=== PATIENT | female | born 1985 | race Caucasian/White ===

== ENCOUNTER 2024-07-23 14:32 | Emergency (ER) | payer BC ==
[~2024-07-23] VITALS: Ht 170.2 cm; Wt 77.6 kg
[2024-07-23 14:45] VITALS: BP 132/85; TEMP 98.4; O2SAT 100
[2024-07-23] MEDS ORDERED: KETOROLAC TROMETHAMINE 15 MG/ML VIAL ONE (15:04)
[2024-07-23] MEDS ORDERED: ONDANSETRON HCL/PF 4 MG/2 ML VIAL ONE (15:05)
[2024-07-23] MEDS ORDERED: MECLIZINE HCL 12.5 MG TABLET ONE (15:05)
[2024-07-23] MEDS: IV NS 0.9% 1,000 ML BAG IV ONE (15:30)
[2024-07-23] MEDS: MECLIZINE HCL 12.5 MG TABLET PO ONE (15:30)
[2024-07-23] MEDS: ONDANSETRON HCL/PF 4 MG/2 ML VIAL IVP ONE (15:31)
[2024-07-23] MEDS: KETOROLAC TROMETHAMINE 15 MG/ML VIAL IV ONE (15:31)
[2024-07-23] MEDS ORDERED: IBUP-1490 PO (16:41)
[2024-07-23] MEDS ORDERED: ONDA4TAB5 PO (16:41)
[2024-07-23] MEDS ORDERED: MECL-159 PO (16:41)
== END 2024-07-23 16:53 | disposition home or self-care (01) ==
LOC: ER 14:36
DX: R42 Dizziness and giddiness (principal); G89.29 Other chronic pain; M54.50 Low back pain, unspecified
CPT/HCPCS: 99284; 96374; 96361; 96375; J8597; J2405; J7030; J1885